=== PATIENT | female | born 1980 | race Two or more races ===

== ENCOUNTER 2023-03-24 06:40 | Day surgery (SDC) | payer OTHER ==
[~2023-03-24 06:40] MED LIST: ADDERALL 20 MG20 MG; SERTRALINE 100MG
== END 2023-03-24 15:15 | disposition home or self-care (01) ==
LOC: CIR.AMB 06:40
PROVIDERS: ATTEND Surgery
DX: D24.2 Benign neoplasm of left breast (principal); N60.82 Other benign mammary dysplasias of left breast; N60.92 Unspecified benign mammary dysplasia of left breast; N60.22 Fibroadenosis of left breast; R92.1 Mammographic calcification found on diagnostic imaging of breast; D48.62 Neoplasm of uncertain behavior of left breast; Z88.0 Allergy status to penicillin; I10 Essential (primary) hypertension; Z20.822 Contact with and (suspected) exposure to COVID-19
CPT/HCPCS: 19301; 19281; L8699